=== PATIENT | male | born 1980 | race Caucasian/White ===

== ENCOUNTER 2024-09-16 17:32 | Inpatient (IN) | payer BC, SELFPAY ==
[2024-09-14] VITALS (8 sets, daily range): BP systolic 115–165; BP diastolic 63–100
--- NOTE | 2024-09-14 17:00 | ED.GENMED ---
History of Present Illness
General
Chief Complaint: Heart Rate Problem
Time Seen by Provider: 09/14/24 16:34
History of Present Illness
History of Present Illness:
43-year-old male with past medical history significant only for chronic sinusitis (recently completed lengthy course of Augmentin) presents to the emergency department for evaluation of low heart rate. He notes he has had general fatigue and poor
exercise tolerance for the past 2 months. Has had intermittent syncope and near syncope events over the past 8 to 12 months, was admitted to [facility] in February of this year for vasovagal syncope at which time he reportedly had EKGs and an
echocardiogram that were unremarkable. On arrival to the emergency department today EKG reveals a bradycardia with a 2-1 AV block. He denies use of any beta-blockers or other antihypertensives. Denies any illicit substance use. Denies any known
tick bites or exposures. No recent fevers or night sweats.
Review of Systems
Review of Systems
Allergies reviewed?: Yes
All Other Systems: ROS reviewed and negative except as documented in HPI and ROS
Phy Exam
Physical Exam
Physical Exam:
GEN: Well appearing, NAD, WDWN
Eyes: PERRLA, EOMs intact, no scleral icterus
HENT: NCAT, oral mucosa moist
Lungs: CTAB, no wheezes, rales, rhonchi, normal chest wall excursion
Cardiac: Bradycardic, no murmur
Neuro: AO x 3
MSK: No gross deformity or ecchymosis. No edema. No digital clubbing
Skin: No rashes, petechiae. Normal color, no pallor or jaundice.
Psych: Calm, cooperative, proper hygiene
Course
Orders/Labs/Results
Orders:
Orders
09/14/24 16:12
Electrocardiogram (*1) Urgent
Reason for Study: Bradycardia / Tachycardia
EKG- Treatment ONCE
09/14/24 17:02
Complete Blood Count/With Diff Urgent
Comprehensive Metabolic Panel Urgent
Lyme Progressive Urgent
Magnesium Urgent
TSH Reflex To Free T4 Urgent
09/14/24 18:10
Add On- LAB Urgent
Tests Added?: lyme progressive
09/14/24 18:15
Blood Culture Q30M
PATEL Source: Blood/Venous
Specimen Description:
09/14/24 18:23
Echo 2D MMode Color/Doppler Routine
Reason for Study: second degree av bblock
09/14/24 18:45
Blood Culture Q30M
PATEL Source: Blood/Venous
Specimen Description:
09/14/24 19:18
Admit/Transfer Patient As Directed
Co-Sign Provider:
Level of Care: Observation services
Assign to:: IVU
Physician / Group: Porter Go
Diagnosis: Secondary AV block
Reason for Hospitalization: Secondary AV block
PRN Pain Medication Management As Directed
May give lesser potent ordered pain med per pt: Yes
preference::
Protocol:: Medication orders for pain may be administered in a
manner that supports deferring to patient preference
when the pt is:
- Requesting an ordered lesser potent pain medication.
Least to most potent pain medications are defined
as: acetaminophen < NSAID < tramadol < opioids
(morphine, oxycodone, hydromorphone).
- Requesting a lesser dose of the same medication IF
ORDERED.
- Requesting a less intrusive route of administration
if both routes are prescribed by the provider (PO <
IV).
09/14/24 19:20
Code Status As Directed
Resuscitation Status: Full Code
09/14/24 19:40
Troponin I Routine
09/15/24 06:00
ECG [Electrocardiogram (*1)] IN AM
Reason for Study: Abnormal EKG
CR Chest - 2 Views Routine
Comment:
Reason For Exam: secondary AV block
Abnormal Lab Results
09/14/24
17:02
RBC 4.30 L 10^6/uL
(4.70-6.10)
MCH 31.2 H pg
(27.0-31.0)
Absolute Neuts (auto) 7.8 H 10^3/uL
(1.4-6.5)
Neutrophils % 78.4 H %
(42.2-75.2)
Lymphocytes % 13.5 L %
(20.5-51.1)
Glucose 105 H mg/dl
(70-99)
09/14/24 17:02
09/14/24 17:02
Vital Signs
Initial and Last Documented VS:
Initial Vital Signs
Pulse Resp BP Pulse Ox
54 18 165/91 98
09/14/24 16:17 09/14/24 16:17 09/14/24 16:17 09/14/24 16:17
Last Documented Vital Signs
Temp Pulse Resp BP Pulse Ox
99.5 F 84 18 139/81 96
09/14/24 16:18 09/14/24 20:15 09/14/24 20:15 09/14/24 20:05 09/14/24 20:15
MDM/Problems Addressed
MDM/Problems Addressed:
Due to persistent and arguably worsening symptoms secondary to a high-grade heart block will admit for further monitoring and cardiology evaluation
Comment
Comment:
EKG independently interpreted by me shows a sinus rhythm at a rate of 49 with a 2-1 AV block, no ischemic changes, right bundle branch block noted
*Critical Care Note
Total Time (30-74mins, 75-104mins- exclusive of procedures): Not Applicable
ED Attending Note
-
Portions of this chart may have been created with voice recognition software.� Occasional wrong word or��sound alike� substitutions may have occurred due to the inherent limitations of voice recognition software.
Discharge Plan
Departure
Patient Disposition: Admit
Date of Disposition: 09/14/24
Time of Disposition: 18:05
Admit to: IVU
Presentation/result/management discussed w/ accepting MD/DO: Hospitalist
Discharge Problem:
Second degree heart block
Interventions
Interventions:
*General Assessment Last Done: 09/14/24 16:36
ED- Fall Risk Assessment Last Done: 09/14/24 16:36
ED- Cardiac Assessment Last Done: 09/14/24 16:36
ED- Pulmonary Assessment Last Done: 09/14/24 16:36
[2024-09-14 17:17] LABS: % Basophils 0.5 % (0-2); % Immature Granulocytes 0.4 % (0-0.5); % Lymphocytes 13.5 % (20.5-51.1); % Monocytes 6.2 % (1.7-9.3); % Neutrophils 78.4 % (42.2-75.2); Absolute Basophils 0.1 10^3/uL (0-0.2); Absolute Eosinophils 0.1 10^3/uL (0-0.7); Absolute Lymphocytes 1.3 10^3/uL (1.2-3.4); Absolute Monocytes 0.6 10^3/uL (0.1-0.6); Absolute Neutrophils 7.8 10^3/uL (1.4-6.5); Hematocrit 39.3 % (39.0-52.0); Hemoglobin 13.4 g/dL (13.0-18.0); Mean Corp Hgb Conc. 34.1 g/dL (33.0-37.0); Mean Corpuscular Hgb 31.2 pg (27.0-31.0); Mean Corpuscular Volume 91.4 fL (80.0-94.0); Mean Platelet Volume 8.9 fL (7.4-10.4); Nucleated Red Blood Cells % 0 % (-); Platelet Count 344 10^3/uL (130-400); Red Cell Dist. Width 12.9 % (11.5-14.5); White Blood Cell Count 9.9 10^3/uL (4.8-10.8)
[2024-09-14 17:46] LABS: ALT (SGPT) 23 U/L (0-50); AST (SGOT) 24 U/L (17-59); Albumin 4.2 g/dl (3.5-5.0); Alkaline Phosphatase 100 U/L (38-126); Blood Urea Nitrogen 15 mg/dl (9-20); Calcium 9.1 mg/dl (8.4-10.2); Carbon Dioxide 26 mmol/L (22-30); Chloride 106 mmol/L (98-107); Glucose 105 mg/dl (70-99); Potassium 4.7 mmol/L (3.5-5.1); Sodium 139 mmol/L (135-145); Total Bilirubin 0.2 mg/dl (0.2-1.3); Total Protein 6.8 g/dl (6.3-8.2); eGFR > 60.00
[2024-09-14 17:59] LABS: TSH Reflex To Free T4 1.03 uIU/ml (0.47-4.68)
--- NOTE | 2024-09-14 18:05 | CON.CAR ---
Addendum entered and electronically signed by Odin Mcclelland MD 09/14/24 18:42:
Patient has been without symptoms at [facility] and has had stable rates. No indication for temp pacing wire at this time. Will continue to observe.
Additonal testing as noted and continued assessment with EP regarding permanat pacemaker.
Original Note:
Consultation
Consultation Request
Date/Time Consultation Requested: 09/14/2024 at 1715
Date/Time Consultation Performed: 09/14/2024 at 1715
Requesting Provider: ER
Performing Provider: Dr. Mcclelland
Reason for Consultation: Secondary AV block
Medical History
-
History of Present Illness:
43-year-old male with no prior cardiac history who presented to the ER because he noticed bradycardia and heart rate in the 40s. ECG shows sinus bradycardia with 2 degree AV block and right bundle branch block.
Patient states the previous periodically he gets an odd sensation that he has difficulties describing its like a knot sensation in his head but he does not necessarily feel presyncopal he almost feels like he cannot think clearly and then the
symptoms will resolve happens seated sometimes notices it when he stands up quickly. He had the symptoms bit more than usual so he checked his vitals using a pulse ox and a blood pressure cuff and both showed that his heart rates were in the 40s.
It sounds as if he has had these intermittent symptoms for a long period of time he will have symptoms at least once a week. He has had no true episodes of syncope he describes 2 episodes in the last couple months where he just felt a warm [place]
while he was in bed and kind of tried to roll over and felt like he nearly blacked out for a second. In addition he had a hospitalization at [facility] back in February 2024 with a near syncopal episode. He said he was driving to meet some friends
and just did not feel well and felt like he might pass out and went over on the side of the road a couple times. He also had decreased appetite and some GI symptoms. He was admitted overnight at [facility]. He had some limited records from that
presentation which showed that he had sinus rhythm with a right bundle at that time. He had been seen by cardiology there was some suspicion that he had a vasovagal near syncope. He reports that he had an echocardiogram that was unremarkable those
records are not available.
No tick bite rash or history of Lyme disease. no known recent Lyme testing by PCP
Review of systems he has had frequent sinus infections he has had some generalized fatigue denies having exertional shortness of breath or chest pain. No orthopnea or lower extremity edema
He has had relatively recent dental work sounds as if he is having preparatory work for an implant
Past medical history
Sinus infections
Social history father is with him at the bedside does not smoke
Past Medical History
Past Medical History: Other (As above)
Social History
Tobacco: Non-Smoker
Family History
Family History: Other (Negative for CAD)
Allergies / Home Medications
Allergy/AdvReac Type Severity Reaction Status Date / Time
No Known Allergies Allergy Unverified 09/14/24 16:22
�Medication �Instructions �Recorded �Confirmed �Type
levocetirizine 5 mg tablet (Xyzal) 5 mg PO DAILY 09/14/24 09/14/24 History
Review of Systems
-
All other systems: Negative unless noted
Physical Exam
Vital Signs
Temp Pulse Resp BP Pulse Ox
99.5 F 46 27 121/71 99
09/14/24 16:18 09/14/24 17:00 09/14/24 16:45 09/14/24 17:00 09/14/24 17:00
Lab Results
09/14/24 17:02
09/14/24 17:02
Physical Exam
General: Well Developed, Well Nourished and No Apparent Distress
HEENT: Normocephalic, Anicteric and Other (Extraocular movements are intact external ear and oral exam unremarkable)
Respiratory: Wheezes
Cardiac: Regular Rhythm
GI: Soft, Non Tender and Non Distended
Musculoskeletal: No Cyanosis and No Edema
Neuro: Awake and Alert
Hematologic/Lymphatic: No Lymphadenopathy
Psych: Calm
Impression / Plan
-
Secondary AV block. Patient with second-degree AV block with right bundle branch block. There was a short period of time in the ER when he was conducted one-to-one and then converted to 2-1 AV block so it appeared more consistent with Mobitz 2..
Exact cause for this rhythm and patient is 43 years old is not clear. With ongoing symptoms including fatigue possibility of Lyme disease is a consideration. Would also consider sarcoid.
-Admit to IVU
-Evaluation for Lyme. Will review with hospitalist. If with fatigue and rhythm it is felt that there is enough clinical information to support Lyme then could consider antibiotic therapy as we wait for results.
-Echocardiogram
-Temp 99.5. No other reports of fevers. Check blood cultures
-Will consider MRI to evaluate for sarcoid
-Will obtain additional input from EP
.
.
Fatigue patient's had some ongoing complaints of fatigue he has had some symptoms of not feeling well for a number of months.
Await results of above testing
Additional evaluation as directed by primary team
.
Patient's had intermittent episodes of feeling funny difficult describing episodes some of these could be rhythm related it is possible that other components of the symptoms are nonrhythm related. Will continue to observe and see if he has
symptomatic episodes during his hospitalization.
Data Reviewed
-
EKG: Report Reviewed by me
Radiology: Report Reviewed by me
Medical Tests (Nuc Med, Echo etc): Report Reviewed by me
Labs: Labs Reviewed by me
--- NOTE | 2024-09-14 18:22 | HPS.HSE ---
Family Physician
-
Family Physician:
Chief Complaint
-
heart rate problem
History of Present Illness
Patient is a 43-year-old male with past medical history significant for chronic sinusitis (recently completed lengthy course of Augmentin) presented to [place] ED for evaluation of low heart rate. Patient reports that he has intermittent
significant fatigue, with episodes of near syncope for approximately 8 months. In February 2024 patient had similar episode and evaluated at [facility], workup was unremarkable. Patient was feeling fatigued with low heart rate today when
visiting parents and decided it was time to have another evaluation as he just 'did not feel right.' On arrival EKG showed bradycardia with 2-1 AV block. Patient states that fatigue will intermittently cause 'lightheadedness' or 'near syncope' at
times. Denies any syncopal episode. Patient denies any fever, chills, chest pain, cough, shortness of breath, nausea, vomiting, constipation, diarrhea or urinary symptoms. Denies any elicit drug use and minimal ETOH consumption.
Medical History
Past Medical History
Past Medical History: Reports None
Additional Past Medical History:
chronic sinusitis
Past Surgical History: Reports Other
Additional Past Surgical History:
oral surgery
Social History
Tobacco: Non-smoker
Alcohol: Occasional
Drug: None
Personal: Single
Living: Alone
Employment: Employed
Family History
Family History: Other (Paternal Grandfather: [place], [place]; Parents alive and healthy)
Allergies / Home Medications
Allergies reflects when Allergies were last updated in [employer].
Home Medications with original date entered in [employer]
Allergy/Medication List:
Allergies
Allergy/AdvReac Type Severity Reaction Status Date / Time
No Known Allergies Allergy Unverified 09/14/24 16:22
Home Medications
levocetirizine 5 mg tablet (Xyzal) 5 mg PO DAILY 09/14/24
Review of Systems
-
History Source: Patient
Constitutional: Reports Fatigue
EENT: Reports No Symptoms
Respiratory: Reports No Symptoms
Cardiac: Reports No Symptoms
Abdomen/GI: Reports No Symptoms
: Reports No Symptoms
Musculoskeletal: Reports No Symptoms
Skin: Reports No Symptoms
Neurological: Reports Other (lightheadedness)
Endocrine: Reports No Symptoms
Hematologic/Lymphatic: Reports No Symptoms
Psych: Reports No Symptoms
Physical Exam
Vital Signs
Vital Signs
Temp Pulse Resp BP Pulse Ox
99.5 F 46 27 121/71 99
09/14/24 16:18 09/14/24 17:00 09/14/24 16:45 09/14/24 17:00 09/14/24 17:00
Physical Exam
General: Well Developed, Well Nourished, No Apparent Distress, Comfortable and Conversant
HEENT: NormoCephalic, Moist mucous membranes, Atraumatic, PERRLA, [place] Conjunctivae, Nose Appears Normal and Ears Appear Normal
Respiratory: Clear and Non Labored Respirations; No Wheezes, Rales, Rhonchi or Crackles
Cardiac: S1/S2, Regular Rhythm and Bradycardia; No Murmur, Rub or Gallop
Breast: Deferred by me
GI: Soft, Non Tender, Non Distended and Normal Bowel Sounds; No Organomegaly
Rectal: Deferred by Provider
Genito-urinary: Deferred by me
Musculoskeletal: No Clubbing, No Cyanosis and No Edema
Skin: Warm and IV/Catheter Site; No Rash
Neuro: Awake, Alert, AO x 3, Nonfocal/grossly intact and Cranial Nerves Intact
Hematologic/Lymphatic: No Lymphadenopathy
Psych: Calm and Intact Judgment/Insight
Laboratory Results
-
09/14/24 17:02
09/14/24 17:02
Laboratory Results
Total Bilirubin 0.2 mg/dl (0.2-1.3) 09/14/24 17:02
AST 24 U/L (17-59) 09/14/24 17:02
ALT 23 U/L (0-50) 09/14/24 17:02
Alkaline Phosphatase 100 U/L (38-126) 09/14/24 17:02
Data Reviewed
-
Medical Tests (Nuc Med, Echo, EKG etc): Report Reviewed by me (EKG: SINUS RHYTHM WITH 2ND DEGREE A-V BLOCK WITH 2:1 A-V CONDUCTION POSSIBLE LEFT ATRIAL ENLARGEMENT RIGHT BUNDLE BRANCH BLOCK)
Lab Data: Labs Reviewed by me
Impression/Plan
-
IMPRESSION/PLAN:
#2nd degree heart block
EKG: SINUS RHYTHM WITH 2ND DEGREE A-V BLOCK WITH 2:1 A-V CONDUCTION
POSSIBLE LEFT ATRIAL ENLARGEMENT
RIGHT BUNDLE BRANCH BLOCK
- Admit to IVU
- Lyme testing pending consider ID consult?
- Echocardiogram pending
Code Status: Full Code
DVT Prophylaxis: Lovenox
--- NOTE | 2024-09-14 19:03 | W.PN.UPDATE ---
Update Note
Progress Note Update
This note serves as an addendum to the H&P by superintendent police Latasha Kate
HPI
43M No prior cardiac history seen at ER
- noticed HR as low as 40s ECG shows sinus bradycardia with 2 degree AV block and right bundle branch block.
- report intermittently odd sensation that he has difficulties describing its like a knot sensation in his head
- not necessarily feel presyncopal
- HX hospitalization at [facility] in February 2024 with a near syncopal episode.
- reports that he had an echocardiogram that was unremarkable those records are not available.
- No tick bite rash or history of Lyme disease. no known recent Lyme testing by PCP
PHX : Sinus infections
Vital Signs
Temp Pulse Resp BP Pulse Ox
99.5 F 46 27 121/71 99
09/14/24 16:18 09/14/24 17:00 09/14/24 16:45 09/14/24 17:00 09/14/24 17:00
PE
Gen: Not toxic
HEENT: anicteric
Neck: supple
Lungs: exp wheeze
Cor: RRR
Abdomen: benign exam
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
MS: No edema
Psych: deferred
Abnormal Lab Results
09/14/24
17:02
RBC 4.30 L
MCH 31.2 H
Absolute Neuts (auto) 7.8 H
Neutrophils % 78.4 H
Lymphocytes % 13.5 L
Glucose 105 H
Pending Lyme serology
nl TSH
Unremarkable CBC
Unremarkable BMP
EKG
SINUS RHYTHM WITH 2ND DEGREE A-V BLOCK WITH 2:1 A-V CONDUCTION
POSSIBLE LEFT ATRIAL ENLARGEMENT
RIGHT BUNDLE BRANCH BLOCK
ABNORMAL ECG
NO PREVIOUS ECGS AVAILABLE
ASSESSMENT & PLAN
Secondary AV block with R BBB
Suspect Mobitz II per Card
Ongoing fatigue possibility DDX: Lyme disease is a consideration.
- ECHO
- Evaluation for Lyme
- Check admission CXR to screen Sarcoid
- CBC card consult appreciated
- To consider ID consult if POS for Lyme serology
DVT Px: LMWH
Full code
IVU
[2024-09-14 20:16] LABS: Troponin I < 0.012 ng/ml
--- NOTE | 2024-09-14 23:58 | PTCARENOTE ---
Admitted to IVU ~2150. HR 2:1 AV block. Pt belongings w/ pt. Pt oriented to unit. Pt updated on plan of care, pt states understanding. Pt denies any lightheadedness/dizziness or near syncope. Informed to notify RN if any changes, call olivia within
reach.
[2024-09-15] VITALS (7 sets, daily range): BP systolic 121–135; BP diastolic 67–94
[2024-09-15 05:47] LABS: Hematocrit 39.2 % (39.0-52.0); Mean Corp Hgb Conc. 35.7 g/dL (33.0-37.0); Mean Corpuscular Hgb 32.6 pg (27.0-31.0); Mean Corpuscular Volume 91.2 fL (80.0-94.0); Mean Platelet Volume 9.3 fL (7.4-10.4); Platelet Count 341 10^3/uL (130-400); White Blood Cell Count 8.4 10^3/uL (4.8-10.8)
[2024-09-15 06:11] LABS: Blood Urea Nitrogen 15 mg/dl (9-20); Carbon Dioxide 25 mmol/L (22-30); Chloride 106 mmol/L (98-107); Glucose 92 mg/dl (70-99); Potassium 4.1 mmol/L (3.5-5.1); Sodium 143 mmol/L (135-145); eGFR > 60.00
--- NOTE | 2024-09-15 09:53 | W.PN.CD ---
Today's Communication / Plan
-
npo p midnight
cardiac mri
possible ppm tomorrow afternoon
Impression / Plan
-
Secondary AV block. Patient with second-degree AV block with right bundle branch block. There was a short period of time in the ER when he was conducted one-to-one and then converted to 2-1 AV block so it appeared more consistent with Mobitz 2..
Exact cause for this rhythm and patient is 43 years old is not clear. With ongoing symptoms including fatigue possibility of Lyme disease is a consideration. Would also consider sarcoid.
-ongoing episodes on telemetry
-D/w Dr Tate, he would like inpatient Cardiac MRI tomorrow am with plan for ppm in the pm. If sarcoid present would also need an ICD lead.
-d/w patient will make NPO after midnight
Fatigue patient's had some ongoing complaints of fatigue he has had some symptoms of not feeling well for a number of months.
Await results of above testing
Additional evaluation as directed by primary team
.
Patient's had intermittent episodes of feeling funny difficult describing episodes some of these could be rhythm related it is possible that other components of the symptoms are nonrhythm related. Will continue to observe and see if he has
symptomatic episodes during his hospitalization.
Subjective,
fatigue but no dizziness or sob.
Physical Exam
Vital Signs/Labs
Vital Signs
Temp Pulse Resp BP Pulse Ox
98.4 F 67 20 133/85 97
09/15/24 07:33 09/15/24 08:45 09/15/24 07:33 09/15/24 07:35 09/15/24 09:22
09/14/24 09/15/24 09/16/24
06:59 06:59 06:59
Actual Weight 79.1 kg
09/15/24 05:10
09/15/24 05:10
Magnesium 2.0 mg/dl (1.6-2.3) 09/14/24 17:02
LAB Results
09/14/24
19:40
Troponin I < 0.012
Physical Exam
Constitutional: No acute distress
Cardiovascular: Rhythm & rate is regular, Pedal edema is absent, JVD pressure is normal and Systolic murmur absent
Respiratory: Respiratory effort normal, Lungs clear to auscul., Wheeze Absent and Crackles Absent
GI: Soft
Neuro/Psych: AO x 3
Data Reviewed
-
Date of Service: September 15, 2024
Medical Decision Making: Review of Case with other Provider (d/w EP Dr Tate, d/w Dr escobedo)
EKG: Other (tele ongoing sinus with mobitz 2 at times rbbb seen)
--- NOTE | 2024-09-15 16:42 | W.PN.HOSP.TC ---
Addendum entered and electronically signed by Gilbert Hightower MD 09/15/24 19:21:
Attending Addendum-
I saw and evaluated the patient. I reviewed the resident�s note and agree with findings and plan as documented in the resident�s note. Sub: Patient feels weak but no other complaints. Denies presyncope CP palps dizziness. Full 12 point ROS reviewed
and negative except as documented Exam: Vitals reviewed in chart GEN-NAD heart RRR lungs clear abd soft LE no edema
Plan:
#Send Degree Heart Block type 2
- in and out of 2:1 conduction
- repeat EKG- sinus without conduction block
- RBBB
- check echo
- r/o lyme
- check cardiac MRI r/o sarcoid in am
- EP study / pacer implant 09/16
# Chronic Sinusitis
- recent completed course of augmentin
-DVp- lovenox
-Code Full
Time spent coordinating care, review of plan of care with resident, personally reviewed records in EMR, med rec, consults, notes, labs, radiology, d/w nursing, cards � 59 mins
Original Note:
Today's Communication/Plan
-
- follow up with cardiology
Assessment / Plan
Assessment / Plan
Acute Secondary Av block second degree with right bundle branch block:
- EKG on 09/14 shows sinus rhythm with second degree AV block with 2:1 Av conduction, possible left atrial enlargement, and right bundle branch block
- Repeat EKG on 09/15 shows normal sinus rhythm and no 2:1 AV block
- troponin less than 0.12
- chest x ray shows no acute disease of chest
- Heart rate ranges from between 40 -120 overnight on telemetry
- Patient had multiple episodes pre syncope over past few months
- Lyme disease panel is pending
- Echo pending
- He is going for a cardiac MRI tomm to exclude possibility of sarcoidosis, NPO past midnight
- Cardiology planning on pacemaker possibly tomorrow in the pm
Chronic Sinusitis:
- Follow up with retort unloader outpatient
DVT: lovenox
Anticipated Discharge: 24 - 48 hours
Subjective/Interval History
-
Date of Service: September 15, 2024
43-year-old male presented emergency department for low heart rate. He was checking his pulse oximeter after feeling uneasy today and it read a heart rate of 48 bpm. He he has been having fatigue for the past 2 to 3 months which has gotten worse
in the past 5 days and is intermittent with tingling in the extremities, sometimes aggravated on movement, sometimes aggravated on rest. 3 days ago he had a brief episode where he lost consciousness for for what he believes is 1 second, there was
no syncope. Previously seen at [facility] in February for presyncope when he was driving and felt like he was going to pass out for which she had EKGs and echocardiogram done that were unremarkable.
Objective Data
-
Labs:
Laboratory Results
09/15/24
05:10
WBC 8.4
Hgb 14.0
Hct 39.2
Plt Count 341
Sodium 143
Potassium 4.1
Chloride 106
Carbon Dioxide 25
BUN 15
Creatinine 0.8
Glucose 92
Calcium 9.0
Vital Signs:
Vital Signs
Temp Pulse Resp BP Pulse Ox
97.9 F 72 18 128/94 99
09/15/24 15:26 09/15/24 16:00 09/15/24 15:26 09/15/24 15:28 09/15/24 15:26
I&O
09/14/24 09/15/24 09/16/24
06:59 06:59 06:59
Intake Total 480 / 480
Balance 480 / 480
Review of Systems
-
Constitutional: Denies Fever or Chills
Respiratory: Denies Cough or Trouble Breathing
Cardiac: Reports Other; Denies Chest Pain, Diaphoresis, Palpitations, Syncope or PND
Abdomen/GI: Denies Abdominal Pain, Nausea, Vomiting, Diarrhea or Constipated
Musculoskeletal: Denies Joint Pain
Skin: Denies Itching
Neuro: Reports Lightheadedness; Denies Dizzy, Headache, Weakness or Numbness
Physical Exam
-
Respiratory: Clear to Auscultation
Cardiac: Regular Rhythm and S1/S2
GI: Soft, Nontender, Nondistended and Normal Bowel Sounds
Musculoskeletal: No Edema
Skin: Warm and Dry
Neuro: Awake, Alert, Oriented and AO x 3
Data Reviewed
-
Medical Tests (Nuc Med, Echo etc): Image personally visualized and interpreted and Discussed with Physician
Labs: Labs Reviewed by me and Discussed with Physician
--- NOTE | 2024-09-15 18:13 | PTCARENOTE ---
Pt mainly in sinus rhythm in the morning at a rate @70's, late afternoon frequent second degree AV block with 2:1 conduction at a rate of 40's. Pt states feeling fatigue. BP 135/74. Plan for Eho and cardiac MRI and possible pacemaker om 09/16.
Pacemaker activity restrictions reviewed with pt who states understanding. Pt declined lovenox injection, he is up walking around independently.
[2024-09-16] VITALS (10 sets, daily range): BP systolic 113–141; BP diastolic 68–89
--- NOTE | 2024-09-16 00:54 | PTCARENOTE ---
Pt received start of shift, HR 2nd degree HB type 2 / SR. Pt states feeling tired when in heart block but energy comes back when heart is in SR. Pt denies any lightheadedness/dizziness. Updated pt on plan of care, pt appears slightly anxious about
length of time of cardiac mri. Educated pt on process. BP stable.
[2024-09-16 06:09] LABS: Hematocrit 39.3 % (39.0-52.0); Hemoglobin 13.7 g/dL (13.0-18.0); Mean Corp Hgb Conc. 34.9 g/dL (33.0-37.0); Mean Corpuscular Hgb 31.8 pg (27.0-31.0); Mean Corpuscular Volume 91.2 fL (80.0-94.0); Mean Platelet Volume 9.5 fL (7.4-10.4); Platelet Count 329 10^3/uL (130-400); Red Blood Cell Count 4.31 10^6/uL (4.70-6.10); White Blood Cell Count 8.2 10^3/uL (4.8-10.8)
[2024-09-16 06:17] LABS: Blood Urea Nitrogen 19 mg/dl (9-20); Calcium 8.8 mg/dl (8.4-10.2); Carbon Dioxide 23 mmol/L (22-30); Chloride 107 mmol/L (98-107); Glucose 112 mg/dl (70-99); Potassium 4.2 mmol/L (3.5-5.1); Sodium 140 mmol/L (135-145); eGFR > 60.00
--- NOTE | 2024-09-16 09:48 | W.PN.CD ---
Today's Communication / Plan
-
Await cardiac MRI
Possible pacemaker plus or minus ICD in the afternoon, remains n.p.o.
Impression / Plan
-
Secondary AV block. Patient with second-degree AV block with right bundle branch block. There was a short period of time in the ER when he was conducted one-to-one and then converted to 2-1 AV block so it appeared more consistent with Mobitz 2..
Exact cause for this rhythm and patient is 43 years old is not clear. With ongoing symptoms including fatigue possibility of Lyme disease is a consideration. Would also consider sarcoid.
-ongoing episodes on telemetry, and 2-1 heart block during our visit at a rate of 42.
-D/w Dr Tate, he would like inpatient Cardiac MRI t today with plan for ppm in the pm. If sarcoid present would also need an ICD lead.
-Patient must be kept NPO.
-No sedative agents can be given as he needs to participate fully in the cardiac MRI and be able to consent for pacemaker.
Fatigue patient's had some ongoing complaints of fatigue he has had some symptoms of not feeling well for a number of months.
Await results of above testing
Additional evaluation as directed by primary team
.
Subjective,
He is feeling well without complaint when lying in bed today.
Physical Exam
Vital Signs/Labs
Vital Signs
Temp Pulse Resp BP Pulse Ox
97.9 F 63 18 113/68 97
09/16/24 08:35 09/16/24 08:15 09/16/24 08:35 09/16/24 04:57 09/16/24 08:35
09/15/24 09/16/24 09/17/24
06:59 06:59 06:59
Actual Weight 79.1 kg
09/16/24 05:07
09/16/24 05:07
Magnesium 2.0 mg/dl (1.6-2.3) 11/27/24 17:02
LAB Results
09/14/24
19:40
Troponin I < 0.012
Physical Exam
Constitutional: No acute distress and Comfortable
Cardiovascular: Rhythm & rate is regular, Pedal edema is absent, JVD pressure is normal, Systolic murmur absent, Diastolic murmur absent and Rhythm/rate is irregular
Respiratory: Respiratory effort normal, Lungs clear to auscul., Wheeze Absent, Crackles Absent and Rhonchi Absent
Neuro/Psych: AO x 3
Data Reviewed
-
Date of Service: September 16, 2024
EKG: Other (Telemetry with sinus rhythm and episodes of 2-1 heart block at a ventricular rate of 4)
[2024-09-16 10:49] LABS: Lyme Antibody Screen, EIA Negative (Negative)
--- NOTE | 2024-09-16 14:34 | W.PN.HOSP.TC ---
Addendum entered and electronically signed by Gilbert Hightower MD 09/16/24 21:36:
Attending Addendum-
I saw and evaluated the patient. I reviewed the resident�s note and agree with findings and plan as documented in the resident�s note. Sub: was bradycardic overnight. Denies presyncope CP palps dizziness. Full 12 point ROS reviewed and negative
except as documented Exam: Vitals reviewed in chart GEN-NAD heart bradycardic lungs clear abd soft LE no edema
Plan:
#Second Degree AV Block with RBBB
-2:1 conduction
-echo- wnl
-neg lyme
-cardiac MRI 09/16- abnormal myocardium with suspicion for ventricular arrhythmia
-pacer/defibrillator implant on 09/16
# Chronic Sinusitis
- recent completed course of Augmentin
-DVp- lovenox
-Code Full
Dispo DC in am
Time spent coordinating care, review of plan of care with resident, personally reviewed records in EMR, med rec, consults, notes, labs, radiology, d/w nursing, cards � 55 mins
Original Note:
Today's Communication/Plan
-
- follow up with cardiology
Assessment / Plan
Assessment / Plan
Acute Secondary Av block second degree with right bundle branch block:
- Level of care changed to inpatient post pacemaker 09/16
- Implantable cardioverter defibrillator with conduction with left bundle branch pacing . 09/16
- Cardiac MRI for possible sarcoidosis resulted 09/16
- Lyme screen negative -09/16
- echo negative for regional wall abnormalities and no significant valvular disease, normal biventricular size and systolic function 09/16
- Heart rate ranges from between 33 -120 overnight on telemetry 09/16
- EKG on 09/14 shows sinus rhythm with second degree AV block with 2:1 Av conduction, possible left atrial enlargement, and right bundle branch block
- Repeat EKG on 09/15 shows normal sinus rhythm and no 2:1 AV block
- troponin less than 0.12
- chest x ray shows no acute disease of chest
- Patient had multiple episodes pre syncope over past few months
Chronic Sinusitis:
- Follow up with [facility] outpatient
DVT: lovenox
Anticipated Discharge: 24 - 48 hours
Subjective/Interval History
-
Date of Service: September 16, 2024
No overnight events
No acute medical problems
Objective Data
-
Labs:
Laboratory Results
09/16/24
05:07
WBC 8.2
Hgb 13.7
Hct 39.3
Plt Count 329
Sodium 140
Potassium 4.2
Chloride 107
Carbon Dioxide 23
BUN 19
Creatinine 0.9
Glucose 112 H
Calcium 8.8
Vital Signs:
Vital Signs
Temp Pulse Resp BP Pulse Ox
97.2 F 47 18 125/77 98
09/16/24 11:45 09/16/24 12:30 09/16/24 11:45 09/16/24 11:45 09/16/24 11:45
I&O
09/15/24 09/16/24 09/17/24
06:59 06:59 06:59
Intake Total 480 / 480 720 / 720
Balance 480 / 480 720 / 720
Review of Systems
-
History Source: Patient
Constitutional: Denies Fever or Fatigue
Respiratory: Denies Cough, Hemoptysis or Wheezing
Cardiac: Denies Chest Pain, Diaphoresis, Palpitations or Syncope
Abdomen/GI: Denies Abdominal Pain, Nausea, Vomiting, Diarrhea or Constipated
Genitourinary: Denies Dysuria
Musculoskeletal: Denies Joint Pain
Physical Exam
-
General: Well Developed and Well Nourished
Respiratory: Clear to Auscultation
Cardiac: Regular Rhythm and S1/S2
GI: Soft, Nontender, Nondistended and Normal Bowel Sounds
Musculoskeletal: No Edema
Skin: Warm and Dry
Neuro: Awake, Alert, Oriented and AO x 3
Data Reviewed
-
Medical Tests (Nuc Med, Echo etc): Image personally visualized and interpreted and Discussed with Physician
Labs: Labs Reviewed by me and Discussed with Physician
--- NOTE | 2024-09-16 14:53 | ITS.CL.ICD ---
Rip/Mould Operator - ICD
Implantable Cardioverter Defibrillator
Procedure Report:
Implantable cardioverter defibrillator with conduction system (left Bundle Branch) pacing lead placement:
Indications:
Advanced second degree heart block with syncope, and abnormal myocardium on cardiac MRI with suspicion for ventricular arrhythmia.
Date of the Procedure: 09/16/24
Pre-Operative Diagnosis: Advanced heart block, syncope, and abnormal myocardial scarring.
Post-Operative Diagnosis: Advanced heart block, syncope, and abnormal myocardial scarring.
Procedure Performed: IMPLANTABLE CARDIOVERTER DEFIBRILLATOR PLACEMENT WITH LEFT BUNDLE BRANCH PACING FOR CARDIAC RESYNCHRONIZATION THERAPY.
Performing physician:
Ben Tate MD
Anesthesia:
See anesthesia records
Detailed Description of the Procedure:
The patient was identified using hospital identification and informed consent obtained for the procedure. The risks were explained to the patient and the family including, but not limited to: Bleeding, infection, arrhythmia, stroke,
vascular/cardiac/lung puncture, surgery, pacemaker dependency/device malfunction. All questions were answered.
Anesthesia service provided sedation as reported separately. Antibiotics administered IV for risk of bacterial colonization. After obtaining informed and written consent, the patient was brought to the electrophysiology laboratory.
The initial rhythm was sinus with 2:1 AV block.
A timeout was performed immediately before the procedure. The left chest was prepped from the nipple to the angle of the jaw with chlorhexidine, and draped following sterile technique in usual routine.�
A surgical pause and time out was performed immediately prior to the procedure with review of her medical history, recent labs, allergies and medications with site of procedure identified and consent noted in the chart. Antibiotics pre operatively
given. All team members concurred.
The procedure site was meticulously prepared with surgical scrub and allowed to dry with no pooling. Sterile draping was applied to cover the procedure site. The image intensifier was draped with sterile bag and positioned over the patient.
The left infraclavicular regions were prepped and draped in the usual sterile fashion. Local anesthesia was administered subcutaneously using 1% lidocaine / Bupivacaine. The left cephalic vein cut-down was performed with an incision at the
delto-pectoral groove, and vascular sheaths were introduced for lead access. These were advanced into the right ventricle and the right atrium.
The right ventricular ICD lead was secured in position with an active fixation technique at the apical septal location. Excellent sensing, impedance and thresholds were recorded.
Patient's QRS was quite wide with ICD pacing and decision was made to replace the bundle branch/conduction system pacing lead for better cardiac resynchronization therapy.
The guide wires were advanced to the inferior vena cava (IVC) under flouro guidance. The guide wire was advanced to the RA and was advanced to the RV. The preformed curved long hemostatic peel away HIS sheath was advanced into the RV cavity. A left
bundle pacing wire was advanced into the sheath to the tip with ventricular signals noted with unipolar manner. The HIS location was identified under guidance of the flouroscopy and the pacing wire signals. The sheath with the pacing lead was moved
deeper into the RV cavity on the septum at a more inferior and distal to the HIS signals.
Once adequate signals were noted on the electrograms of the pacing lead in the sheath with W pattern signals on the RV septum, the lead was advanced and clockwise turns were done under fluoroscopic guidance. The septum was engaged and the lead was
paced intermittently after every 2-3 turns. The Impedance of the lead was measured that remained stable around 1000 Ohm.
The lead was not able to advance into the septum. The pacing signals from the lead showed only RV septal pacing, though narrow but not left bundle pacing. This was thought to be due to the entanglement effect of the lead to the septal endocardium.
The decision was made to remove the lead and relocate to another locations.
Another septal location was identified with adequate signals noted on the pacing leads and good flouroscopic location. There was sheath approximation conformed on ASHLEIGH view and the pacing lead was advanced with clockwise turns into the septal
location. The septum was successfully engaged. The lead was paced and septal pacing was noted. The sheath was placed again to the septum and the lead was advanced 2-3 turns with pacing with each advancement. The location was excellent but was noted
to have high threshold indicating presence of scar in that location and lead was again removed and placed at a third location in the same way reported above. �
The ventricular capture was monitored throughout and the captures gradually changed from RV pacing to non-selective pacing to LBB pacing with R wave on V1.
With RBBB pattern noted on the pacing lead, it was decided to accept the location as optimal location. The long guiding sheath was cut and removed from the RV without change in lead position, impedance, sensing, or capture. The lead was sutured to
the underlying pectoralis fascia with 2-0 Ethibond stitches.
The RA lead was then introduced and was attached in the right atrial appendage with active fixation. There was high threshold noted and again it was replaced to a lateral wall of the RAA and excellent indices noted.
There was excellent sensing, pacing, and impedance from the leads, with no diaphragmatic stimulation at 10 V output.�Bovie cautery, antibiotics, and fluoroscopy were used.
The leads were attached to the pulse generator in standard configuration with acceptable sensing and threshold parameters. The pocket was irrigated with antibiotic solution; the pocket was inspected with no active bleeding noted. The device and the
leads were placed in the pocket.
Deep subcutaneous tissues were closed with 3 layers of 2-0 V loc sutures; and the dermis was reopposed using a running 4-0 VLoc subcuticular suture. Sponge counts / sharp counts were appropriate.
Procedure End:
The procedure was tolerated well. Aquacel bandaged was applied. A pressure dressing was applied.
Estimated Blood loss:
5 cc
Specimens Removed:
No cultures and no specimens were obtained. No intraoperative pathology was identified.
Urine output:
None
Packs / Drains/ Tubes:
None
Instrument / Sponge Count Correct:
Yes
Complications of the Procedure:
None
Condition of Patient at Time of Transfer:
Hemodynamically stable with no neurological or vascular compromise.
����������� Generator: Wordseye; Model: [id number]; Serial # [id number]
����������� Atrial Lead: Wordseye; Model: 5076-52; Serial # [id number]
Measured data in the right atrium was sensing of 3.3 mV, impedance of 646 ohms and threshold of 0.5 V at 0.4ms
����������� RV ICD Lead: Medtronic; Model: 6935M-62; Serial # [id number]
Measured data in the RV lead was sensing of 5.3 mV, impedance of 703 ohms and threshold of 0.75 V at 0.4ms
����������� LBB pacing lead:
����������������������� Medtronic; Model: 3830-69; Serial # [id number]
����������������������� Measured data on the RV lead was sensing of 7mV, impedance of 893 ohms and threshold of 1.0 V at 0.4ms
PROGRAMMING PARAMETERS:�
Luis Fernando parameter settings were DDD 50-140 �
����������� Paced AV interval: 130ms
����������� Sensed AV interval: 100 ms.
����������� Rate Adaptive A-V Interval: on
����������� Mode switch ON
�
Tachy parameter settings:
��������������� SVT discrimination: On
��������������� AF/AFl: On
��������������� SVT limit: 260 msec
��������������� VT zone:
������������������������������� Slow VT: 150 - 182 bpm --> Monitor
������������������������������� Fast VT: 182-207 bpm --> ATP then Shock
������������������������������� VF: >207 bpm --> Shock x6 (ATP before and during)
�
Summary:
Successful implantation of MRI compatible AIR VALVE REPAIRER-D with conduction system pacing LBB pacing lead with ICD placement.
Results/Recommendations:
-Please follow up CXR�
1. Please provide patient with adequate pain control�
2. Consider genetic testing for ARVD. EKG shows epsilon wave and RV scarring including outflow tract involvement.
Instructions to be given to patient:�
- Please follow up with [facility] at [address] [place] [address] ([phone]) to get your wound checked in 2 weeks of your discharge. Then follow with
- Do not wet incision site until after it is evaluated at cardiology clinic. No baths or showers until then. Sponge baths / showers are OK but dab dry the dressing after it is wet.�
- Allow 'steri strips' to fall off on their own�
- Do not lift left elbow above shoulder, particularly with sudden jerking movements, for 1 month�
- Do not lift anything weighing more than 5 pounds with the left arm for 1 month�
- If you notice any fevers, shortness of breath, lightheadedness, chest pain, or worsening swelling in the wound site, please contact the arrhythmia clinic, contact your e commerce strategist, or present to the hospital for evaluation.�
Ben Tate MD
Electrophysiology
--- NOTE | 2024-09-16 16:22 | CM ---
spoke to pt in room, he is previndep, lives alone in a 2 story home with 2 steps to enter. he denies any dc planning needs or dme's. plan is for dc to home when medicaly stable.
--- NOTE | 2024-09-16 18:36 | PTCARENOTE ---
Pt had an echo and cardiac MRI. Pt had dual ICD placed in left anterior chest. Dressing dry and intact, no sign of bleeding or hematoma. Telemetry now shows vent paced rhythm at a rate @ 80's. Pt denies any discomfort, up independently. Pt aware of
activity restrictions post device.
[2024-09-16] MEDS: ANCEF 5 IV (19:55)
[2024-09-17 04:26] VITALS: BP 120/81
[2024-09-17] MEDS: ANCEF 5 IV (05:18)
[2024-09-17 05:29] LABS: Hematocrit 39.4 % (39.0-52.0); Hemoglobin 13.7 g/dL (13.0-18.0); Mean Corp Hgb Conc. 34.8 g/dL (33.0-37.0); Mean Corpuscular Hgb 31.4 pg (27.0-31.0); Mean Corpuscular Volume 90.4 fL (80.0-94.0); Mean Platelet Volume 9.2 fL (7.4-10.4); Platelet Count 343 10^3/uL (130-400); Red Blood Cell Count 4.36 10^6/uL (4.70-6.10); Red Cell Dist. Width 12.7 % (11.5-14.5); White Blood Cell Count 11.4 10^3/uL (4.8-10.8)
[2024-09-17 05:50] LABS: Blood Urea Nitrogen 15 mg/dl (9-20); Calcium 9.3 mg/dl (8.4-10.2); Carbon Dioxide 21 mmol/L (22-30); Chloride 105 mmol/L (98-107); Estimated Creatinine Clearance 125 ml/min; Glucose 131 mg/dl (70-99); Magnesium 1.9 mg/dl (1.6-2.3); Potassium 4.7 mmol/L (3.5-5.1); Sodium 138 mmol/L (135-145); eGFR > 60.00
[2024-09-17 07:53] VITALS: BP 131/69
--- NOTE | 2024-09-17 08:23 | W.PN.CD ---
Addendum entered and electronically signed by Odin Mcclelland MD 09/17/24 09:39:
additonal discussion with EP who is recommendaing low dose Toprol. Patient with scarring in RV. Also will plan for outpatient additonal genetic testing. Will referr to [facility].
Addendum entered and electronically signed by Odin Mcclelland MD 09/17/24 08:42:
I saw and examined the patient.
The AUTOMOTIVE SALES MANAGER's note was reviewed and I agree with the note.
Patient is feeling well. He says he is felt much better for since the ICD implant no longer has the fatigue he was feeling with heart rates were in the 40s. ICD site appears fine. Low pitched systolic murmur. May be component of TR. Will check
echocardiogram. Patient's understands directions regarding post ICD.
-Echocardiogram
-Okay for discharge after echo reviewed
-Plan for follow-up in office on 09/22/2024 at 4 PM as outlined in discharge.
Original Note:
Today's Communication / Plan
-
No pain.
Post device implantation restrictions were reviewed with the patient.
Murmur on exam, limitied echocardiogram
Impression / Plan
-
IMPRESSION/PLAN: 43M with no prior cardiac history who presented to the ER because he noticed bradycardia and heart rate in the 40s. ECG shows sinus bradycardia with 2 degree AV block and right bundle branch block.
Second-degree AV block with right bundle branch block
-Short period of time in the ER when he was conducted one-to-one and then converted to 2-1 AV block so it appeared more consistent with Mobitz 2
-Exact cause for this rhythm and patient is 43 years old is not clear, with ongoing symptoms including fatigue possibility of Lyme disease is a consideration. Would also consider sarcoid.
-Cardiac MRI report pending
-S/P ICD with left bundle branch pacing 09/16/2024, postprocedure CXR stable
-EKG this morning with atrial sensed ventricular paced rhythm
-Murmur on exam, limited TTE
Fatigue
-Ongoing for several months
SUBJECTIVE:
Denies incisional discomfort. No dizziness.
DATA:
Transthoracic echocardiogram on 09/16/2024:
Normal biventricular size and systolic function without regional wall motion
abnormality.
No significant valvular disease.
No prior study available for comparison.
Physical Exam
Vital Signs/Labs
Vital Signs
Temp Pulse Resp BP Pulse Ox
98.2 F 98 16 131/69 98
09/17/24 07:51 09/17/24 08:15 09/17/24 07:51 09/17/24 07:53 09/17/24 07:53
09/17/24 04:42
09/17/24 04:42
Magnesium 1.9 mg/dl (1.6-2.3) 09/17/24 04:42
LAB Results
09/14/24
19:40
Troponin I < 0.012
Physical Exam
Constitutional: No acute distress and Comfortable
EENT: Anicteric and Moist mucous membranes
Cardiovascular: Rhythm & rate is regular and Pedal edema is absent
Respiratory: Respiratory effort normal and Lungs clear to auscul.
GI: Soft, Distention absent, Flat and Non tender
Neuro/Psych: AO x 3
Other: Skin and Cardiac Device Site (Dressing C/D/I. No pocket fullness.)
Data Reviewed
-
Date of Service: September 17, 2024
EKG: Report Reviewed by me
Labs: Labs Reviewed by me
--- NOTE | 2024-09-17 09:18 | W.PN.HOSP.TC ---
Addendum entered and electronically signed by Soila Domínguez MD 09/17/24 14:20:
Card now prefers Toprol 50 mg. Discharge med list and instruction updated
Addendum entered and electronically signed by Soila Domínguez MD 09/17/24 13:17:
total DC time 38 min
DW Card, Toprol 25 mg daily started for scarring in RV which was noted on cardiac MRI
Original Note:
Today's Communication/Plan
-
Okay for discharge after echo reviewed
Assessment / Plan
Assessment / Plan
A/P:
# Second Degree AV Block with RBBB
-2:1 conduction
-echo- wnl
-neg lyme
-cardiac MRI 09/16- abnormal myocardium with suspicion for ventricular arrhythmia
-pacer/defibrillator implanted on 09/16
- Plan for follow-up in office on 09/22/2024 at 4 PM as outlined in discharge.
# Low pitched systolic murmur, may be component of TR.
- check echo
# Chronic Sinusitis
- recent completed course of Augmentin
-DVp- lovenox
-Code Full
Anticipated Discharge: Today
Subjective/Interval History
-
Date of Service: September 17, 2024
Objective Data
-
Labs:
Laboratory Results
09/17/24
04:42
WBC 11.4 H
Hgb 13.7
Hct 39.4
Plt Count 343
Sodium 138
Potassium 4.7
Chloride 105
Carbon Dioxide 21 L
BUN 15
Creatinine 0.7
Glucose 131 H
Calcium 9.3
Vital Signs:
Vital Signs
Temp Pulse Resp BP Pulse Ox
36.8 C 98 16 131/69 98
09/17/24 07:51 09/17/24 08:15 09/17/24 07:51 09/17/24 07:53 09/17/24 08:37
I&O
09/16/24 09/17/24 09/18/24
06:59 06:59 06:59
Intake Total 720 / 720 480 / 480
Balance 720 / 720 480 / 480
Review of Systems
-
All other systems: Reviewed and negative
Physical Exam
-
General: Well Developed, Well Nourished, No Apparent Distress, Comfortable and Conversant
Respiratory: Non Labored Respirations; Negative Accessory Resp Muscle Use
Cardiac: Regular Rhythm and S1/S2
Musculoskeletal: No Edema
Skin: Warm and Dry
Neuro: Awake, Alert, Oriented and AO x 3
Psych: Calm and Intact Judgement/Insight
Data Reviewed
-
Labs: Labs Reviewed by me
[2024-09-17 11:37] VITALS: BP 141/81
[2024-09-17] MEDS: TOPROL XL 25 MG PO ×2 (11:39→14:22)
--- NOTE | 2024-09-17 13:07 | W.DCSUMMARY ---
Discharge Summary
Discharge Data
Date of Admission: 09/16/24
Date of Discharge: 09/17/24
-
Pending Results: No
Hospital Course
Principal Diagnosis:
Second Degree AV Block with RBBB
Chronic Diagnoses:�
Chronic Sinusitis, recently completed course of Augmentin
Consultations:�
Cardiology
Procedures:�
Pacer/defibrillator implanted on 09/16/24
Clinical course:�
This is a 43-year-old male, who presented with fatigue, lightheadedness/presyncope, and slow heart rate
Problem 1:
Second Degree AV Block with RBBB
He underwent pacer/defibrillator implantation on 09/16.
His echo was unrevealing.
His Lyme serology was checked (due to bradycardia) and it was negative.
His cardiac MRI on 09/16 noted abnormal myocardium, ?scarring in RV.
Low dose Toprol 25 mg daily was started given scarring in RV was noted. He has been informed to follow-up outpatient with [facility] for additional genetic testing.
As for the rest of his medical problems, they were stable during his hospital stay.
Discharge Plan
-
Patient Disposition: Home (Routine Discharge)
Discharge Diagnosis/Procedures: Second Degree heart block status post Defibrillator implant
Condition: Good
Diet: Regular
Activity: No strenuous activity
Additional Activity: See attached instructions. No exercise.
Driving Restrictions: No driving for 1 week
Bathing Restrictions: OK to Shower
Stand Alone Forms: DC Inst - Implanted Device
Referrals:
[facility] [Provider Group] - 09/22/24 4:00 pm (Incision check appointment)
Sandie Choi MD [Non-Admitting Privileges] - (Please make an appointment for ARVD evaluation with someone from the genetics team.)
Nader De Leon PA [Family Provider] - in less than 1 week
Additional Discharge Medication Instructions: You were started with Toprol 25 mg daily
Prescriptions:
New
metoprolol succinate 25 mg Tablet Extended Release 24 Hr
25 mg PO DAILY Qty: 30 0RF
Continued
levocetirizine [Xyzal] 5 mg Tablet
5 mg PO DAILY
Discharge Orders:
Discharge Patient (As Directed); Ordered 09/17/24
Ordered By: Soila Domínguez
Care Plan Goals
Care Plan Goals:
Problem: Readiness for enhanced knowledge related to diagnosis and treatment plan
Goal: Understand your diagnosis and treatment plan needs, including medications if applicable.
Instructions: Know your diagnosis, underlying causes and treatment plan options, including medications if applicable. Consult with your health care team to learn about your diagnosis and treatment plan, including medications if applicable.
Discharge Date and Time
Print Language: TAMAZIGHT
[2024-09-17 14:18] VITALS: BP 128/73
--- NOTE | 2024-09-17 15:27 | PTCARENOTE ---
Pt had follow up echo done, report reviewed by . Telemetry shows vent. paced rhythm with 7beat run NSVT, aware, toprol started already. Telemetry and IV device removed. Discharge instructions reviewed with pt regarding activity
and driving restrictions, wound care, medications and their possible side effects, pain management, reporting cares and concerns and follow up appt's. Excellent understanding taught back to RN. Pt escorted out via wheelchair and discharged to home.
== END 2024-09-17 15:15 | disposition home or self-care (01) | DRG 277 ==
LOC: IVU 17:32
PROVIDERS: Internal Medicine Cardiovascular Disease; Nurse Practitioner Adult Health; Nurse Practitioner Family; Physician Assistant; Student in an Organized Health Care Education/Training Program; ADMITTING PHYSICIAN Internal Medicine; ATTENDING PHYSICIAN Internal Medicine; CONSULT PHYSICIAN Internal Medicine Cardiovascular Disease; EMERGENCY PHYSICIAN Emergency Medicine; FAMILY PHYSICIAN Physician Assistant
PROC: 02H63KZ Insertion of Defibrillator Lead into Right Atrium, Percutaneous Approach (ICD-10-PCS; 2024-09-16)
PROC: 0JH609Z Insertion of Cardiac Resynchronization Defibrillator Pulse Generator into Chest Subcutaneous Tissue and Fascia, Open Approach (ICD-10-PCS; 2024-09-16)
PROC: 02HL3KZ Insertion of Defibrillator Lead into Left Ventricle, Percutaneous Approach (ICD-10-PCS; 2024-09-16)
PROC: 02HK3KZ Insertion of Defibrillator Lead into Right Ventricle, Percutaneous Approach (ICD-10-PCS; 2024-09-16)
DX: I44.1 Atrioventricular block, second degree (principal); J32.9 Chronic sinusitis, unspecified; R53.83 Other fatigue; I45.10 Unspecified right bundle-branch block; Z60.2 Problems related to living alone; Z82.49 Family history of ischemic heart disease and other diseases of the circulatory system
CPT/HCPCS: 93308; 33249; 71045; 71046; 75561; 80048; 80053; 83735; 84443; 84484; 85025; 85027; 86618; 87040; 93005; 93306; 99285; A9585; C1777; C1882; C1887; C1892; C1898

== ENCOUNTER → 2024-09-29 07:01 | Outpatient (REF) | payer BC, SELFPAY | LOC: HWRCS 07:01 | PROVIDERS: ATTENDING PHYSICIAN Internal Medicine Cardiovascular Disease | DX: I45.10 Unspecified right bundle-branch block (principal) | CPT/HCPCS: 93308 ==